=== PATIENT | male | born 1975 | race Caucasian/White ===

== ENCOUNTER 2018-12-01 18:20 | Emergency (ER) | payer SELFPAY ==
[~2018-12-01] VITALS: Ht 162.6 cm; Wt 110.0 kg
[2018-12-01 18:21] VITALS: BP 170/106
== END 2018-12-01 20:15 | disposition left against medical advice (07) ==
LOC: ER 18:20
DX: R07.9 Chest pain, unspecified (principal); Z53.21 Procedure and treatment not carried out due to patient leaving prior to being seen by health care provider
CPT/HCPCS: 93005

== ENCOUNTER 2023-03-27 18:40 | Emergency (ER) | payer SELFPAY ==
[~2023-03-27] VITALS: Ht 175.3 cm; Wt 115.0 kg
[2023-03-27 19:01] VITALS: TEMP 98.2; O2SAT 97
[2023-03-27 19:22] LABS: BASOPHILS % 0.7 % (0.0-2.0); EOSINOPHILS % 0.7 % (0.0-5.0); HEMATOCRIT. 44.5 % (42.0-52.0); LYMPHOCYTES % 35.3 % (20.0-50.0); MEAN CORPUSCULAR HEMOGLOBIN 29.6 pg (28.0-32.0); MEAN CORPUSCULAR HGB CONC 33.8 g/dL (31.0-37.0); MEAN CORPUSCULAR VOLUME 87.7 fL (80.0-94.0); MONOCYTES % 8.3 % (2.0-8.0); RED BLOOD CELL COUNT 5.08 mill/uL (4.7-6.1); RED CELL DISTRIBUTION WIDTH 16.5 % (11.6-14.6); WHITE BLOOD COUNT 8.8 x1000/uL (4.5-11.0)
[2023-03-27 19:26] LABS: DIFFERENTIAL COMMENT 1
[2023-03-27 19:40] LABS: ALANINE AMINOTRANSFERASE 178 IU/L (10-49); ALBUMIN 4.2 g/dL (3.2-4.8); ASPARTATE AMINOTRANSFERASE 124 IU/L (<34); BILIRUBIN TOTAL 2.9 mg/dL (0.1-1.0); CALCIUM 8.8 mg/dL (8.7-10.4); CARBON DIOXIDE 26 mEq/L (21-32); CHLORIDE 101 mEq/L (98-107); CREATININE 0.9 mg/dL (0.6-1.3); GLUCOSE 95 mg/dL (70-105); PROTEIN TOTAL 8.3 g/dL (6.0-8.3); SODIUM 140 mEq/L (136-145); UREA NITROGEN BLOOD 7 mg/dL (9-23)
[2023-03-27] MEDS ORDERED: ONDANSETRON 4MG ODT PO STA (19:42)
[2023-03-27] MEDS ORDERED: MAGNESIUM/ALUMINUM HYDROXIDE/SIMETHICONE 30ML UDC PO STA (19:42)
[2023-03-27] MEDS ORDERED: CHLORDIAZEPOXIDE 25MG CAPSULE PO ONE (19:45)
[2023-03-27 19:51] LABS: MEAN PLATELET VOLUME 10.7 fl (7.4-10.4); PLATELET 161 x1000/uL (130-400)
[2023-03-27 20:06] LABS: INR 1.2; PROTHROMBIN TIME 13.1 sec (9.6-11.0)
[2023-03-27 20:13] LABS: ETHANOL BLOOD 205 mg/dL (<10)
[2023-03-27] MEDS ORDERED: POTASSIUM CHLORIDE 20MEQ/PACKET PO NR (20:36)
[2023-03-27] MEDS ORDERED: FAMO-135 PO (20:36)
[2023-03-28 01:57] VITALS: BP 187/109; PULSE 102; RESP 19
[2023-03-28] MEDS ORDERED: MAGNESIUM/ALUMINUM HYDROXIDE/SIMETHICONE 30ML UDC PO NR (02:00)
[2023-03-28] MEDS ORDERED: CHLORDIAZEPOXIDE 25MG CAPSULE PO NR (02:00)
[2023-03-28] MEDS ORDERED: ONDANSETRON 4MG ODT PO NR (02:00)
== END 2023-03-28 02:10 | disposition home or self-care (01) ==
LOC: ER 18:40
DX: F10.90 Alcohol use, unspecified, uncomplicated (principal); I10 Essential (primary) hypertension; Y90.7 Blood alcohol level of 200-239 mg/100 ml
CPT/HCPCS: 80053; 80320; 83690; 85025; 85610; 36415; 71045; 99284; Q0162; G0480